=== PATIENT | female | born 1995 | race Two or more races ===

== ENCOUNTER 2017-07-16 12:51 | Emergency (ER) | payer OTHER ==
[2017-07-16] MEDS ORDERED: IBUPROFEN 600 MG TABLET PO ONE (13:51)
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
[2017-07-16 15:12] VITALS: BP 104/64
== END 2017-07-16 15:12 | disposition home or self-care (01) ==
LOC: ER 12:51
DX: S46.819A Strain of other muscles, fascia and tendons at shoulder and upper arm level, unspecified arm, initial encounter (principal); S29.012A Strain of muscle and tendon of back wall of thorax, initial encounter; S80.12XA Contusion of left lower leg, initial encounter; M79.1 Myalgia; M54.6 Pain in thoracic spine; V87.7XXA Person injured in collision between other specified motor vehicles (traffic), initial encounter
CPT/HCPCS: 72070; 99284